=== PATIENT | male | born 1995 | race African-American/Black ===

== ENCOUNTER 2021-02-14 09:32 | Emergency (ER) | payer BC, MEDICAID, OTHER ==
[2021-02-14 23:45] LABS: SARS-CoV-2 PCR by NAA DETECTED (NotDetected)
== END 2021-02-14 11:40 | disposition home or self-care (01) ==
LOC: CSHERS 09:32
DX: U07.1 COVID-19 (principal)
CPT/HCPCS: 99283; U0003; U0005